=== PATIENT | female | born 1975 | race Caucasian/White ===

== ENCOUNTER 2018-09-16 07:16 | Inpatient (IN) | payer MEDICAID ==
[~2018-09-16] VITALS: Ht 167.6 cm; Wt 81.6 kg
[2018-09-16] MEDS ORDERED: PROM6.2514 GT (07:43)
[2018-09-16] MEDS ORDERED: ACETAMINOPHEN 325MG TABLET PO ONE (10:15)
[2018-09-16] MEDS ORDERED: PREDNISONE 20MG TABLET PO ONE (13:45)
[2018-09-16 14:30] LABS: BASOPHILS % 1.2 % (0.0-2.0); EOSINOPHILS % 0.5 % (0.0-5.0); HEMATOCRIT. 41.5 % (36.0-48.0); LYMPHOCYTES % 22.1 % (20.0-50.0); MEAN CORPUSCULAR VOLUME 80.1 fL (81.0-99.0); MEAN PLATELET VOLUME 7.9 fl (7.4-10.4); MONOCYTES % 6.7 % (2.0-8.0); NEUTROPHILS % 69.5 % (40.0-76.0); PLATELET 314 x1000/uL (130-400); RED BLOOD CELL COUNT 5.18 mill/uL (4.2-5.4); RED CELL DISTRIBUTION WIDTH 14.4 % (11.6-14.6)
[2018-09-16 14:39] LABS: CHLORIDE 101 mEq/L (98-107)
[2018-09-16 14:45] LABS: INR 1.1; PROTHROMBIN TIME 11.3 sec (9.6-11.0)
[2018-09-16 17:00] VITALS: BP 120/75
[2018-09-16] MEDS ORDERED: LORA10TA7 PO (18:10)
[2018-09-16] MEDS ORDERED: QUET50TA21 PO (18:10)
[2018-09-16] MEDS ORDERED: ESCI10TA54 PO (18:11)
[2018-09-16] MEDS ORDERED: METF-414 PO (18:11)
[2018-09-16] MEDS ORDERED: NAPR500T7 PO (18:11)
[2018-09-16] MEDS ORDERED: D-ME473S8 MT (18:12)
[2018-09-16] MEDS ORDERED: IPRATROPIUM/ALBUTEROL 0.5-3(2.5)MG/3ML NEB INH PRN (19:30)
[2018-09-16] MEDS ORDERED: LORAZEPAM 0.5MG TABLET PO PRN (19:30)
[2018-09-16] MEDS ORDERED: ONDANSETRON HCL 4MG/2ML INJ IV PRN (19:30)
[2018-09-16] MEDS ORDERED: CLONIDINE 0.1MG TABLET PO PRN (19:30)
[2018-09-16] MEDS ORDERED: ACETAMINOPHEN 325MG TABLET PO PRN (19:30)
[2018-09-16] MEDS ORDERED: DOCUSATE SODIUM 100MG CAPSULE PO PRN (19:30)
[2018-09-16 20:00] VITALS: BP 107/73
[2018-09-16] MEDS ORDERED: NON FORMULARY PATIENT HOME MED XX SCH (20:15)
[2018-09-16] MEDS: HYDROCODONE/ACETAMINOPHEN 5/325MG TABLET PO PRN (20:40)
[2018-09-16] MEDS ORDERED: QUETIAPINE FUMARATE 50MG TABLET PO SCH (21:00)
[2018-09-17] VITALS (8 sets, daily range): BP systolic 92–120; BP diastolic 57–73
[2018-09-17] MEDS ORDERED: QUETIAPINE FUMARATE 50MG TABLET PO SCH ×2 (03:00→21:00)
[2018-09-17] MEDS: HYDROCODONE/ACETAMINOPHEN 5/325MG TABLET PO PRN (04:32)
[2018-09-17] MEDS ORDERED: DEXTROSE 50% WATER 50ML SYRINGE IV PRN (06:30)
[2018-09-17] MEDS: PANTOPRAZOLE 40MG DR TABLET PO SCH (06:30)
[2018-09-17 06:45] LABS: BASOPHILS % 0.5 % (0.0-2.0); EOSINOPHILS % 0.1 % (0.0-5.0); HEMATOCRIT. 39.9 % (36.0-48.0); HEMOGLOBIN. 13.1 g/dL (12.0-16.0); LYMPHOCYTES % 13.4 % (20.0-50.0); MEAN CORPUSCULAR HEMOGLOBIN 26.2 pg (28.0-32.0); MEAN PLATELET VOLUME 8.1 fl (7.4-10.4); MONOCYTES % 5.9 % (2.0-8.0); NEUTROPHILS % 80.1 % (40.0-76.0); PLATELET 342 x1000/uL (130-400); RED BLOOD CELL COUNT 4.99 mill/uL (4.2-5.4); RED CELL DISTRIBUTION WIDTH 14.7 % (11.6-14.6)
[2018-09-17 06:56] LABS: CHLORIDE 100 mEq/L (98-107)
[2018-09-17 07:08] LABS: HDL CHOLESTEROL 40 mg/dL (40-59); PHOSPHORUS 4.5 mg/dL (2.5-4.9)
[2018-09-17 07:09] LABS: LDL CHOLESTEROL 111 mg/dL (5-100)
[2018-09-17] MEDS: INSULIN LISPRO 100 UNITS/ML SUBCUT SCH ×4 (07:50→21:00)
[2018-09-17] MEDS: BLOOD SUGAR DIAGNOSTIC STRIP TEST SCH ×4 (08:07→21:16)
[2018-09-17] MEDS: CITALOPRAM HYDROBROMIDE 20MG TABLET PO SCH (10:30)
[2018-09-17] MEDS: PREDNISONE 10MG TABLET PO SCH ×3 (10:30→19:01)
[2018-09-17] MEDS ORDERED: LIDOCAINE HCL 1% 20ML VIAL (Pyxis) INJ ONE (11:51)
[2018-09-17] MEDS ORDERED: HYDROCODONE/ACETAMINOPHEN 5/325MG TABLET PO PRN (12:45)
[2018-09-17] MEDS: LORATADINE 10MG TABLET PO SCH (19:01)
[2018-09-17] MEDS: SERTRALINE HCL 50MG TABLET PO SCH (23:00)
[2018-09-17] MEDS: CELECOXIB 200MG CAPSULE PO SCH (23:00)
[2018-09-18] VITALS: BP 107/71
[2018-09-18 04:00] VITALS: BP 110/68
[2018-09-18 05:59] LABS: BASOPHILS % 0.5 % (0.0-2.0); HEMOGLOBIN. 13.8 g/dL (12.0-16.0); LYMPHOCYTES % 17.2 % (20.0-50.0); MEAN CORPUSCULAR HEMOGLOBIN 26.5 pg (28.0-32.0); MEAN CORPUSCULAR VOLUME 80.6 fL (81.0-99.0); MEAN PLATELET VOLUME 8.4 fl (7.4-10.4); MONOCYTES % 5.6 % (2.0-8.0); NEUTROPHILS % 76.7 % (40.0-76.0); PLATELET 349 x1000/uL (130-400); RED BLOOD CELL COUNT 5.21 mill/uL (4.2-5.4); RED CELL DISTRIBUTION WIDTH 14.7 % (11.6-14.6)
[2018-09-18] MEDS: PANTOPRAZOLE 40MG DR TABLET PO SCH (06:28)
[2018-09-18] MEDS: HYDROCODONE/ACETAMINOPHEN 5/325MG TABLET PO PRN (06:29)
[2018-09-18 06:59] LABS: CHLORIDE 99 mEq/L (98-107)
[2018-09-18] MEDS: BLOOD SUGAR DIAGNOSTIC STRIP TEST SCH ×4 (07:35→21:00)
[2018-09-18] MEDS: INSULIN LISPRO 100 UNITS/ML SUBCUT SCH ×4 (07:50→21:00)
[2018-09-18 08:00] VITALS: BP 110/69
[2018-09-18] MEDS: SERTRALINE HCL 50MG TABLET PO SCH (08:20)
[2018-09-18] MEDS: CITALOPRAM HYDROBROMIDE 20MG TABLET PO SCH (08:20)
[2018-09-18] MEDS: PREDNISONE 5MG TABLET PO SCH ×3 (08:20→16:59)
[2018-09-18] MEDS: CELECOXIB 200MG CAPSULE PO SCH ×2 (08:20→16:59)
[2018-09-18 12:00] VITALS: BP 109/67
[2018-09-18 16:00] VITALS: BP 110/74
[2018-09-18] MEDS: LORATADINE 10MG TABLET PO SCH (16:59)
[2018-09-18 20:00] VITALS: BP 115/75
[2018-09-18] MEDS: QUETIAPINE FUMARATE 100MG TABLET PO SCH (20:58)
[2018-09-18] MEDS: FAMOTIDINE 20MG TABLET PO SCH (21:26)
[2018-09-19] VITALS: BP 111/89
[2018-09-19 04:00] VITALS: BP 110/77
[2018-09-19 06:04] LABS: BASOPHILS % 0.9 % (0.0-2.0); EOSINOPHILS % 0.2 % (0.0-5.0); HEMATOCRIT. 37.3 % (36.0-48.0); HEMOGLOBIN. 12.5 g/dL (12.0-16.0); LYMPHOCYTES % 23.5 % (20.0-50.0); MEAN CORPUSCULAR HEMOGLOBIN 26.8 pg (28.0-32.0); MEAN CORPUSCULAR VOLUME 79.8 fL (81.0-99.0); MEAN PLATELET VOLUME 8.1 fl (7.4-10.4); MONOCYTES % 8.4 % (2.0-8.0); PLATELET 308 x1000/uL (130-400); RED BLOOD CELL COUNT 4.67 mill/uL (4.2-5.4); RED CELL DISTRIBUTION WIDTH 14.5 % (11.6-14.6)
[2018-09-19 06:18] LABS: CHLORIDE 101 mEq/L (98-107)
[2018-09-19] MEDS: BLOOD SUGAR DIAGNOSTIC STRIP TEST SCH ×4 (06:50→21:00)
[2018-09-19] MEDS: INSULIN LISPRO 100 UNITS/ML SUBCUT SCH ×4 (07:36→21:00)
[2018-09-19 08:00] VITALS: BP 114/77
[2018-09-19] MEDS: PREDNISONE 5MG TABLET PO SCH ×3 (09:19→17:36)
[2018-09-19] MEDS: FAMOTIDINE 20MG TABLET PO SCH ×2 (09:19→22:07)
[2018-09-19] MEDS: CELECOXIB 200MG CAPSULE PO SCH ×2 (09:19→17:36)
[2018-09-19] MEDS: CITALOPRAM HYDROBROMIDE 20MG TABLET PO SCH (09:19)
[2018-09-19] MEDS: SERTRALINE HCL 50MG TABLET PO SCH (09:19)
[2018-09-19 10:08] LABS: ANTI-DNA DOUBLE STRANDED QUANT 3 IU/mL (0-9); RNP ANTIBODY 0.2 AI (0.0-0.9); SMITH ANTIBODY < 0.2 AI (0.0-0.9)
[2018-09-19 12:00] VITALS: BP 107/72
[2018-09-19] MEDS ORDERED: QUET100T PO (16:43)
[2018-09-19] MEDS ORDERED: SERT50TA PO (16:43)
[2018-09-19] MEDS ORDERED: CELE200C PO (16:43)
[2018-09-19] MEDS: LORATADINE 10MG TABLET PO SCH (17:36)
[2018-09-19 19:59] LABS: HCG SCREEN NEGATIVE
[2018-09-19 20:00] VITALS: BP 110/71
[2018-09-19] MEDS: QUETIAPINE FUMARATE 100MG TABLET PO SCH (22:07)
[2018-09-20] VITALS: BP 108/72
[2018-09-20 04:00] VITALS: BP 111/72
[2018-09-20 05:53] LABS: BASOPHILS % 0.5 % (0.0-2.0); EOSINOPHILS % 0.2 % (0.0-5.0); HEMATOCRIT. 38.8 % (36.0-48.0); LYMPHOCYTES % 18.8 % (20.0-50.0); MEAN CORPUSCULAR HEMOGLOBIN 26.9 pg (28.0-32.0); MEAN CORPUSCULAR VOLUME 80.1 fL (81.0-99.0); MEAN PLATELET VOLUME 8.1 fl (7.4-10.4); MONOCYTES % 7.5 % (2.0-8.0); PLATELET 312 x1000/uL (130-400); RED BLOOD CELL COUNT 4.85 mill/uL (4.2-5.4); RED CELL DISTRIBUTION WIDTH 14.7 % (11.6-14.6)
[2018-09-20 06:03] LABS: CHLORIDE 101 mEq/L (98-107)
[2018-09-20] MEDS: INSULIN LISPRO 100 UNITS/ML SUBCUT SCH ×4 (07:27→21:00)
[2018-09-20] MEDS: BLOOD SUGAR DIAGNOSTIC STRIP TEST SCH ×4 (07:27→21:00)
[2018-09-20 08:00] VITALS: BP 105/68
[2018-09-20] MEDS: CITALOPRAM HYDROBROMIDE 20MG TABLET PO SCH (08:25)
[2018-09-20] MEDS: SERTRALINE HCL 50MG TABLET PO SCH (08:25)
[2018-09-20] MEDS: CELECOXIB 200MG CAPSULE PO SCH ×2 (08:25→17:10)
[2018-09-20] MEDS: FAMOTIDINE 20MG TABLET PO SCH ×2 (08:25→22:09)
[2018-09-20] MEDS: PREDNISONE 5MG TABLET PO SCH ×3 (08:25→17:09)
[2018-09-20 09:06] LABS: COMPLEMENT C3 218 mg/dL (82-167)
[2018-09-20 12:00] VITALS: BP 101/72
[2018-09-20 15:07] LABS: ANTI-MYELOPEROXIDASE AB < 9.0 U/mL (0.0-9.0); ANTI-PROTEINASE 3 ABS < 3.5 U/mL (0.0-3.5)
[2018-09-20 16:00] VITALS: BP 112/87
[2018-09-20] MEDS: LORATADINE 10MG TABLET PO SCH (17:09)
[2018-09-20] MEDS ORDERED: KETOROLAC 15MG/ML VIAL IV SCH (18:45)
[2018-09-20 20:00] VITALS: BP 116/74
[2018-09-20] MEDS: QUETIAPINE FUMARATE 100MG TABLET PO SCH (21:00)
[2018-09-21] VITALS: BP 111/83
[2018-09-21 04:00] VITALS: BP 113/79
[2018-09-21 06:03] LABS: BASOPHILS % 0.6 % (0.0-2.0); EOSINOPHILS % 0.4 % (0.0-5.0); HEMATOCRIT. 39.6 % (36.0-48.0); HEMOGLOBIN. 13.3 g/dL (12.0-16.0); LYMPHOCYTES % 20.9 % (20.0-50.0); MEAN CORPUSCULAR HEMOGLOBIN 26.9 pg (28.0-32.0); MONOCYTES % 7.7 % (2.0-8.0); NEUTROPHILS % 70.4 % (40.0-76.0); PLATELET 346 x1000/uL (130-400); RED BLOOD CELL COUNT 4.96 mill/uL (4.2-5.4); RED CELL DISTRIBUTION WIDTH 14.5 % (11.6-14.6)
[2018-09-21] MEDS: BLOOD SUGAR DIAGNOSTIC STRIP TEST SCH ×2 (06:26→12:20)
[2018-09-21 06:35] LABS: CHLORIDE 100 mEq/L (98-107)
[2018-09-21] MEDS: INSULIN LISPRO 100 UNITS/ML SUBCUT SCH ×2 (07:50→12:50)
[2018-09-21 08:00] VITALS: BP 111/75
[2018-09-21] MEDS: FAMOTIDINE 20MG TABLET PO SCH (08:22)
[2018-09-21] MEDS: CITALOPRAM HYDROBROMIDE 20MG TABLET PO SCH (08:23)
[2018-09-21] MEDS: CELECOXIB 200MG CAPSULE PO SCH (08:23)
[2018-09-21] MEDS: PREDNISONE 5MG TABLET PO SCH ×2 (08:23→13:00)
[2018-09-21] MEDS: SERTRALINE HCL 50MG TABLET PO SCH (08:24)
[2018-09-21 09:08] LABS: CYC CITRULLINATED PEP IgG/IgA 6 units (0-19)
[2018-09-21 12:00] VITALS: BP 109/71
[2018-09-21] MEDS: HYDROCODONE/ACETAMINOPHEN 5/325MG TABLET PO PRN (14:50)
[2018-09-21 16:00] VITALS: BP 100/75
[2018-09-21 16:45] VITALS: BP 111/75
[2018-09-22 15:06] LABS: ANA IFA Negative (.)
[2018-09-23 15:06] LABS: ATYPICAL P-ANCA <1:20 titer (Neg:<1:20); CYTOPLASMIC C-ANCA <1:20 titer (Neg:<1:20); PERINUCLEAR P-ANCA <1:20 titer (Neg:<1:20)
== END 2018-09-21 16:57 | disposition home or self-care (01) | DRG 346 ==
LOC: ER 07:16 → 6EST 13:36 → ENRESERV 15:18
PROVIDERS: ADMIT Internal Medicine; ATTEND Internal Medicine
DX: M31.6 Other giant cell arteritis (principal); M32.9 Systemic lupus erythematosus, unspecified; D72.829 Elevated white blood cell count, unspecified; F32.9 Major depressive disorder, single episode, unspecified; E11.9 Type 2 diabetes mellitus without complications; F41.9 Anxiety disorder, unspecified; M06.9 Rheumatoid arthritis, unspecified; M19.90 Unspecified osteoarthritis, unspecified site; Z53.29 Procedure and treatment not carried out because of patient's decision for other reasons; Z60.2 Problems related to living alone; Z79.84 Long term (current) use of oral hypoglycemic drugs; Z59.0 Homelessness; Z98.891 History of uterine scar from previous surgery; Z90.49 Acquired absence of other specified parts of digestive tract; Z88.6 Allergy status to analgesic agent
CPT/HCPCS: 36415; 80048; 80061; 82962; 83036; 83520; 83735; 84100; 84443; 84703; 85651; 86160; 86200; 86225; 86235; 86256; 86431; 93005; 99285; J3490; J7512

== ENCOUNTER 2018-10-29 09:41 | Emergency (ER) | payer MEDICAID ==
[~2018-10-29] VITALS: Ht 167.6 cm; Wt 82.0 kg
[~2018-10-29 09:41] MED LIST: CELE200C PO; D-ME473S8 MT; ESCI10TA54 PO; LORA10TA7 PO; METF-414 PO; PROM6.2514 GT; QUET100T PO
[2018-10-29 09:49] VITALS: BP 103/71
== END 2018-10-29 11:52 | disposition home or self-care (01) ==
LOC: ER 09:41
DX: M25.572 Pain in left ankle and joints of left foot (principal)
CPT/HCPCS: 73600; 73620; 81025; 99283

== ENCOUNTER 2018-12-30 15:36 | Emergency (ER) | payer MEDICAID, OTHER ==
[~2018-12-30] VITALS: Ht 162.6 cm; Wt 84.0 kg
[2018-12-30 17:05] VITALS: BP 120/76
== END 2018-12-30 17:07 | disposition home or self-care (01) ==
LOC: ER 15:36
DX: Q38.3 Other congenital malformations of tongue (principal); Z90.49 Acquired absence of other specified parts of digestive tract; Z98.890 Other specified postprocedural states; Z79.899 Other long term (current) drug therapy; Z88.5 Allergy status to narcotic agent
CPT/HCPCS: 99281

== ENCOUNTER 2019-02-15 11:01 | Emergency (ER) | payer OTHER ==
[~2019-02-15] VITALS: Ht 167.6 cm; Wt 86.0 kg
[2019-02-15 13:50] VITALS: BP 119/84
== END 2019-02-15 13:51 | disposition home or self-care (01) ==
LOC: ER 11:03
DX: H92.02 Otalgia, left ear (principal); E11.9 Type 2 diabetes mellitus without complications; Z87.19 Personal history of other diseases of the digestive system; Z98.890 Other specified postprocedural states; Z98.51 Tubal ligation status; Z88.1 Allergy status to other antibiotic agents; Z79.899 Other long term (current) drug therapy
CPT/HCPCS: 99282

== ENCOUNTER 2022-04-02 16:55 | Emergency (ER) | payer MEDICAID ==
[~2022-04-02] VITALS: Ht 162.6 cm; Wt 80.0 kg
[~2022-04-02 16:55] MED LIST changes: +ESCI-7 PO; -ESCI10TA54 PO
[2022-04-02] MEDS ORDERED: IBUPROFEN 600MG TABLET PO STA (17:53)
[2022-04-02 19:57] LABS: BASOPHILS % 0.6 % (0.0-2.0); EOSINOPHILS % 1.1 % (0.0-5.0); HEMATOCRIT. 39.8 % (36.0-48.0); HEMOGLOBIN. 13.4 g/dL (12.0-16.0); LYMPHOCYTES % 32.5 % (20.0-50.0); MEAN CORPUSCULAR HEMOGLOBIN 26.5 pg (28.0-32.0); MEAN CORPUSCULAR VOLUME 79.1 fL (81.0-99.0); MEAN PLATELET VOLUME 7.7 fl (7.4-10.4); MONOCYTES % 8.8 % (2.0-8.0); PLATELET 289 x1000/uL (130-400); RED BLOOD CELL COUNT 5.03 mill/uL (4.2-5.4); RED CELL DISTRIBUTION WIDTH 15.1 % (11.6-14.6)
[2022-04-02 20:08] LABS: HCG SCREEN NEGATIVE
[2022-04-02 20:53] LABS: CLARITY URINE CLOUDY (CLEAR); COLOR URINE YELLOW (YELLOW); KETONES URINE NEGATIVE (NEGATIVE); LEUKOCYTE ESTERASE URINE 2+ (NEGATIVE); NITRITE URINE POSITIVE (NEGATIVE); OCCULT BLOOD URINE NEGATIVE (NEGATIVE); PROTEIN URINE NEGATIVE (NEGATIVE); SPECIFIC GRAVITY URINE 1.011 (1.005-1.030); UROBILINOGEN URINE 0.2 E.U./dL (0.2-1.0)
[2022-04-02 21:13] LABS: CHLORIDE 105 mEq/L (98-107)
[2022-04-02] MEDS ORDERED: IBUP-2029 MT (21:33)
[2022-04-02] MEDS ORDERED: CEPH500T MT (21:33)
[2022-04-02 21:35] VITALS: BP 127/82
== END 2022-04-02 21:42 | disposition home or self-care (01) ==
LOC: ER 16:55
DX: N30.00 Acute cystitis without hematuria (principal); N10 Acute pyelonephritis
CPT/HCPCS: 36415; 80053; 81003; 81025; 84703; 85025; 99283

== ENCOUNTER 2023-03-01 09:20 | Emergency (ER) | payer MEDICAID, OTHER ==
[~2023-03-01] VITALS: Ht 167.6 cm; Wt 105.0 kg
[~2023-03-01 09:20] MED LIST changes: +CEPH500T MT; +IBUP-2029 MT
[2023-03-01 09:23] VITALS: BP 136/93; PULSE 90; RESP 16; TEMP 98.5; O2SAT 97
[2023-03-01] MEDS ORDERED: FLUT9.9S BOTHNSTRLS (09:38)
== END 2023-03-01 12:18 | disposition home or self-care (01) ==
LOC: ER 09:20
DX: H92.03 Otalgia, bilateral (principal); E11.9 Type 2 diabetes mellitus without complications; Z88.5 Allergy status to narcotic agent; Z98.51 Tubal ligation status; Z98.890 Other specified postprocedural states
CPT/HCPCS: 99283

== ENCOUNTER 2023-08-30 19:38 | Emergency (ER) | payer MEDICAID, OTHER ==
[~2023-08-30] VITALS: Ht 167.6 cm; Wt 95.5 kg
[~2023-08-30 19:38] MED LIST changes: +FLUT9.9S BOTHNSTRLS; -PROM6.2514 GT; +PROM6.2533 GT
[2023-08-30 19:50] VITALS: TEMP 97.8; O2SAT 97
[2023-08-30 20:54] LABS: BASOPHILS % 0.9 % (0.0-2.0); EOSINOPHILS % 0.8 % (0.0-5.0); HEMATOCRIT. 39.5 % (36.0-48.0); HEMOGLOBIN. 13.1 g/dL (12.0-16.0); LYMPHOCYTES % 26.7 % (20.0-50.0); MEAN CORPUSCULAR HEMOGLOBIN 26.5 pg (28.0-32.0); MEAN CORPUSCULAR HGB CONC 33.1 g/dL (31.0-37.0); MEAN CORPUSCULAR VOLUME 80.1 fL (81.0-99.0); MEAN PLATELET VOLUME 7.5 fl (7.4-10.4); NEUTROPHILS % 64.6 % (40.0-76.0); PLATELET 280 x1000/uL (130-400); RED BLOOD CELL COUNT 4.93 mill/uL (4.2-5.4); RED CELL DISTRIBUTION WIDTH 14.3 % (11.6-14.6)
[2023-08-30 21:10] LABS: ALANINE AMINOTRANSFERASE 21 IU/L (10-49); ALBUMIN 4.5 g/dL (3.2-4.8); ASPARTATE AMINOTRANSFERASE 21 IU/L (<34); BILIRUBIN TOTAL 0.4 mg/dL (0.1-1.0); CALCIUM 8.8 mg/dL (8.7-10.4); CARBON DIOXIDE 28 mEq/L (21-32); CHLORIDE 100 mEq/L (98-107); CREATININE 0.8 mg/dL (0.6-1.0); GLUCOSE 162 mg/dL (70-105); POTASSIUM 3.7 mEq/L (3.5-5.1); PROTEIN TOTAL 7.8 g/dL (6.0-8.3); SODIUM 135 mEq/L (136-145); UREA NITROGEN BLOOD 13 mg/dL (9-23)
[2023-08-30 21:54] LABS: CLARITY URINE CLEAR (CLEAR); COLOR URINE YELLOW (YELLOW); GLUCOSE URINE NEGATIVE (NEGATIVE); KETONES URINE NEGATIVE (NEGATIVE); LEUKOCYTE ESTERASE URINE TRACE (NEGATIVE); NITRITE URINE NEGATIVE (NEGATIVE); OCCULT BLOOD URINE NEGATIVE (NEGATIVE); PH URINE 6.5 (4.5-8.0); PROTEIN URINE NEGATIVE (NEGATIVE); UROBILINOGEN URINE 0.2 E.U./dL (0.2-1.0)
[2023-08-30 22:11] LABS: BACTERIA URINE TRACE; RBC URINE 0-2 /hpf (0-2); SQUAMOUS EPITHELIAL CELL URINE 1+ /lpf (RARE/1+)
[2023-08-30] MEDS: FAMOTIDINE 20MG TABLET PO SCH (23:30)
[2023-08-31 00:04] LABS: TROPONIN I HIGH SENSITIVITY < 4 ng/L (3.0-34)
[2023-08-31 02:15] VITALS: BP 123/80; PULSE 93; RESP 15
[2023-08-31] MEDS: KETOROLAC 30MG/ML VIAL IM ONE (02:15)
== END 2023-08-31 04:00 | disposition home or self-care (01) ==
LOC: ER 19:38
DX: R10.84 Generalized abdominal pain (principal); R05.9 Cough, unspecified; E11.9 Type 2 diabetes mellitus without complications; E78.00 Pure hypercholesterolemia, unspecified; Z87.440 Personal history of urinary (tract) infections; Z87.19 Personal history of other diseases of the digestive system; Z98.51 Tubal ligation status; Z90.49 Acquired absence of other specified parts of digestive tract; Z79.899 Other long term (current) drug therapy
CPT/HCPCS: 99285; 71045; 80053; 81003; 81025; 83690; 85025; 84484; 36415; 74176; 96372; J1885

== ENCOUNTER 2024-02-18 14:04 | Emergency (ER) | payer MEDICAID ==
[~2024-02-18] VITALS: Ht 172.7 cm; Wt 114.0 kg
[~2024-02-18 14:04] MED LIST changes: +CEL200 PO; -CELE200C PO
[2024-02-18 14:21] VITALS: O2SAT 99
[2024-02-18] MEDS ORDERED: LIDOCAINE HCL 1% 20ML VIAL INFIL ONE (17:00)
[2024-02-18] MEDS: TETANUS, DIPHTHERIA, PERTUSSIS VAC/PF 0.5ML (>10YR OLD) IM ONE (17:43)
[2024-02-18 18:18] VITALS: BP 130/82; PULSE 83; RESP 18; TEMP 36.78072; O2SAT 100
== END 2024-02-18 18:19 | disposition home or self-care (01) ==
LOC: ER 14:09
DX: L03.012 Cellulitis of left finger (principal); E11.9 Type 2 diabetes mellitus without complications; E78.00 Pure hypercholesterolemia, unspecified; Z00.00 Encounter for general adult medical examination without abnormal findings; Z88.5 Allergy status to narcotic agent; Z79.899 Other long term (current) drug therapy
CPT/HCPCS: 99283; 10060; 81025; 90715; 90471; J3490

== ENCOUNTER 2024-03-02 10:01 | Emergency (ER) | payer MEDICAID ==
[~2024-03-02] VITALS: Ht 167.6 cm; Wt 91.0 kg
[2024-03-02 10:20] VITALS: O2SAT 98
[2024-03-02 13:45] VITALS: BP 112/75; PULSE 69; RESP 18; TEMP 36.72516; O2SAT 98
[2024-03-02] MEDS: BACITRACIN ZINC OINT UDPKT TOP ONE (16:56)
[2024-03-02] MEDS: LIDOCAINE HCL/PF 1% 10 MG/ML 5ML VIAL INFIL ONE (16:56)
[2024-03-02] MEDS ORDERED: SULF1TAB48 MT (16:58)
[2024-03-02] MEDS ORDERED: CEPH500C2 MT (16:58)
== END 2024-03-02 14:09 | disposition home or self-care (01) ==
LOC: ER 10:12
DX: L03.021 Acute lymphangitis of right finger (principal); E11.9 Type 2 diabetes mellitus without complications; E78.00 Pure hypercholesterolemia, unspecified; Z79.899 Other long term (current) drug therapy; Z88.5 Allergy status to narcotic agent
CPT/HCPCS: 26010; 99283; J3490; Z7610 ×3

== ENCOUNTER 2024-08-31 12:44 | Emergency (ER) | payer MEDICAID ==
[~2024-08-31] VITALS: Ht 167.6 cm; Wt 91.0 kg
[~2024-08-31 12:44] MED LIST changes: +CEPH500C2 MT; +SULF1TAB48 MT
[2024-08-31 12:49] VITALS: PULSE 88; RESP 18; O2SAT 99
[2024-08-31 12:53] VITALS: BP 115/73; TEMP 36.7; O2SAT 96
== END 2024-08-31 13:50 | disposition left against medical advice (07) ==
LOC: ER 12:44
DX: H92.03 Otalgia, bilateral (principal); Z53.21 Procedure and treatment not carried out due to patient leaving prior to being seen by health care provider

== ENCOUNTER 2024-10-23 12:07 | Emergency (ER) | payer MEDICAID ==
[~2024-10-23] VITALS: Ht 167.6 cm; Wt 87.9 kg
[2024-10-23 12:14] VITALS: O2SAT 97
[2024-10-23 12:23] VITALS: BP 159/87; PULSE 91; RESP 16; TEMP 36.9; O2SAT 98
[2024-10-23 13:00] LABS: BASOPHILS % 0.4 % (0.0-2.0); DIFFERENTIAL COMMENT 0; EOSINOPHILS % 2.3 % (0.0-5.0); HEMATOCRIT. 40.5 % (36.0-48.0); HEMOGLOBIN. 13.7 g/dL (12.0-16.0); MEAN CORPUSCULAR HEMOGLOBIN 26.6 pg (28.0-32.0); MEAN CORPUSCULAR HGB CONC 33.8 g/dL (31.0-37.0); MEAN CORPUSCULAR VOLUME 78.9 fL (81.0-99.0); MEAN PLATELET VOLUME 7.6 fl (7.4-10.4); MONOCYTES % 9.6 % (2.0-8.0); NEUTROPHILS % 53.7 % (40.0-76.0); PLATELET 246 x1000/uL (130-400); RED BLOOD CELL COUNT 5.13 mill/uL (4.2-5.4); WHITE BLOOD COUNT 7.9 x1000/uL (4.5-11.0)
[2024-10-23 13:10] LABS: CARBON DIOXIDE 28 mEq/L (21-32); CHLORIDE 104 mEq/L (98-107); POTASSIUM 3.5 mEq/L (3.5-5.1); SODIUM 140 mEq/L (136-145)
[2024-10-23 13:11] LABS: CALCIUM 9.2 mg/dL (8.7-10.4)
[2024-10-23 13:15] LABS: CREATININE 0.8 mg/dL (0.6-1.0)
[2024-10-23 13:16] LABS: GLUCOSE 148 mg/dL (70-105); UREA NITROGEN BLOOD 8 mg/dL (9-23)
[2024-10-23 13:17] LABS: ALANINE AMINOTRANSFERASE 16 IU/L (10-49); ALBUMIN 4.6 g/dL (3.2-4.8); ASPARTATE AMINOTRANSFERASE 15 IU/L (<34)
[2024-10-23 13:18] LABS: BILIRUBIN DIRECT 0.1 mg/dL (<=3.0); BILIRUBIN TOTAL 0.4 mg/dL (0.1-1.0); PROTEIN TOTAL 7.9 g/dL (6.0-8.3)
[2024-10-23] MEDS ORDERED: DICYCLOMINE 10 MG/5 ML ORAL SYR PO STA (14:29)
[2024-10-23] MEDS: FAMOTIDINE 20MG TABLET PO ONE (15:04)
[2024-10-23] MEDS: MAGNESIUM/ALUMINUM HYDROXIDE/SIMETHICONE 30ML UDC PO STA (15:04)
[2024-10-23] MEDS: DICYCLOMINE HCL 10MG CAPSULE PO NR (15:04)
[2024-10-23] MEDS: ONDANSETRON 4MG ODT PO STA (15:04)
[2024-10-23] MEDS ORDERED: FAMO-135 MT (15:38)
== END 2024-10-23 15:57 | disposition home or self-care (01) ==
LOC: ER 12:07
DX: K29.70 Gastritis, unspecified, without bleeding (principal); E78.00 Pure hypercholesterolemia, unspecified; E11.9 Type 2 diabetes mellitus without complications; Z88.5 Allergy status to narcotic agent; Z79.899 Other long term (current) drug therapy; Z90.49 Acquired absence of other specified parts of digestive tract; Z98.890 Other specified postprocedural states
CPT/HCPCS: 99284; 71045; 80076; 80048; 83690; 85025; 36415; Q0162

== ENCOUNTER 2025-04-16 14:26 | Emergency (ER) | payer MEDICAID ==
[~2025-04-16] VITALS: Ht 167.6 cm; Wt 95.0 kg
[~2025-04-16 14:26] MED LIST changes: +FAMO-135 MT; +IBUP-1455 MT; -IBUP-2029 MT
[2025-04-16 14:42] VITALS: BP 122/89; TEMP 36.9; O2SAT 98
[2025-04-16 14:53] VITALS: PULSE 78; RESP 15; O2SAT 100
[2025-04-16 15:50] LABS: BASOPHILS % 0.7 % (0.0-2.0); EOSINOPHILS % 0.8 % (0.0-5.0); HEMATOCRIT. 37.4 % (36.0-48.0); HEMOGLOBIN. 12.6 g/dL (12.0-16.0); LYMPHOCYTES % 30.2 % (20.0-50.0); MEAN PLATELET VOLUME 7.7 fl (7.4-10.4); MONOCYTES % 7.2 % (2.0-8.0); NEUTROPHILS % 61.1 % (40.0-76.0); PLATELET 282 x1000/uL (130-400); RED BLOOD CELL COUNT 4.64 mill/uL (4.2-5.4); RED CELL DISTRIBUTION WIDTH 14.3 % (11.6-14.6)
[2025-04-16 16:01] LABS: CREATININE 0.8 mg/dL (0.6-1.0); UREA NITROGEN BLOOD 6 mg/dL (9-23)
[2025-04-16 16:02] LABS: HCG SCREEN NEGATIVE
[2025-04-16] MEDS ORDERED: SODIUM CHLORIDE 0.9% 1,000 ML IV ONE (18:45)
[2025-04-16] MEDS ORDERED: METRONIDAZOLE 500 MG PREMIX 100 ML IV ONE (18:45)
[2025-04-16] MEDS ORDERED: LEVOFLOXACIN 500MG PREMIX 100 ML IV ONE (18:45)
[2025-04-16] MEDS ORDERED: OXYCODONE HCL/ACETAMINOPHEN 5/325MG TABLET PO ONE (18:45)
== END 2025-04-16 19:22 | disposition left against medical advice (07) ==
LOC: ER 14:26
DX: K57.32 Diverticulitis of large intestine without perforation or abscess without bleeding (principal); E11.9 Type 2 diabetes mellitus without complications; E78.00 Pure hypercholesterolemia, unspecified; Z79.899 Other long term (current) drug therapy; Z88.5 Allergy status to narcotic agent; Z90.49 Acquired absence of other specified parts of digestive tract
CPT/HCPCS: 99284; 74176; 80048; 84703; 85025; 36415; J7030